=== PATIENT | male | born 1990 | race Caucasian/White ===

== ENCOUNTER 2016-07-13 21:01 | Emergency (ER) | payer OTHER ==
[2016-07-13] MEDS ORDERED: Loratadine 10 MG Tab PO ONE (21:20)
[2016-07-13] MEDS ORDERED: Albuterol 0.083% 2.5 MG/3 ML Neb Soln NEB ONE (21:20)
[2016-07-13] MEDS ORDERED: Sodium Chloride 0.9% 10 ML Syringe FLUSH PRN (21:20)
[2016-07-13] MEDS ORDERED: methylPREDNISolone Sodium Succinate 125 MG/2 ML SDV IVPUSH ONE (21:20)
--- NOTE | 2016-07-13 21:32 | EDM.PDOC ---
ED HPI Allergic Reaction - General Chief Complaint: Allergic Reaction Stated Complaint: SOB Time Seen by Provider: 07/13/16 21:11 Source of Information: Reports: Patient, RN notes reviewed - History of Present Illness INITIAL COMMENTS - FREE TEXT/NARRATIVE: 26-year-old male comes in with shortness of breath, lightheadedness and dizziness that started after taking a dose of Robitussin about one hour ago. He states that he began experiencing some nasal and sinus congestion this late afternoon and also onset of nonproductive coughing. Therefore he took the Robitussin to try help relieve some of those symptoms. He states that his tongue feels "tingly". It does not feel swollen. His mouth or face does not feel swollen. So far his throat feels okay. He has not developed any rash, hives and also denies skin itchiness at this time. He states he has had prior "anaphylactic" reaction to penicillin in the past. He is not currently on antibiotics or any other prescription medicine at this time. He does not smoke. He may have had some mild reactive airway disease when young but states he outgrew that. He works in the [employer] but no unusual chemical exposure that he is aware of - Related Data Allergies/ADRs: Allergies Allergy/AdvReac Type Severity Reaction Status Date / Time amoxicillin Allergy Anaphylactic Verified 07/13/16 21:08 Shock coconut Allergy Airway Verified 07/13/16 21:08 Tightness Penicillins Allergy Anaphylactic Verified 07/13/16 21:08 Shock Tetracyclines Allergy Hives Verified 07/13/16 21:08 Past Medical History HEENT History: Reports: Other (see below) Other HEENT History: deviated septum; broken nsoe 2x Cardiovascular History: Reports: Other (see below) Other Cardiovascular History: palpitations Musculoskeletal History: Reports: Fracture, Other (see below) Other Musculoskeletal History: clavicle; rotator cuffs; vertebrea fracture ( possibly thoracic) Social & Family History - Tobacco Use Smoking Status *Q: Never Smoker - Caffeine Use Caffeine Use: Reports: Coffee - Recreational Drug Use Recreational Drug Use: No ED ROS ALLERGIC REACTION - Review of Systems Review Of Systems: See Below Constitutional: Denies: fever, chills, diaphoresis HEENT: Reports: Sinus problem (he does have nasal and sinus congestion). Denies : Throat pain, Throat swelling Respiratory: Reports: shortness of breath, cough. Denies: wheezing, pleuritic chest pain, sputum Cardiovascular: Reports: Lightheadedness. Denies: Chest pain, Syncope GI/Abdominal: Denies: Abdominal pain, Nausea, Vomiting Musculoskeletal: Denies: neck pain, shoulder pain, arm pain, joint pain Skin: Reports: erythema (his slight erythema of his upper chest). Denies: pruritis, rash ED EXAM GENERAL NO PERIP PULSE - Physical Exam Exam: See Below General Appearance: alert, anxious (mild) Eye Exam: bilateral eye: PERRL Throat/Mouth: Normal inspection, Normal oropharynx Neck: supple, full range of motion Respiratory/Chest: lungs clear, normal breath sounds, respiratory distress ( mild tachypnea noted). No: rhonchi, wheezing Cardiovascular: regular rate, rhythm GI/Abdominal: soft, non tender Extremities: normal inspection. No: pedal edema, leg pain Neurological: alert, oriented, no motor/sensory deficits Skin Exam: Warm, Dry, No rash, Erythema (slight erythema of the upper mid chest) Course - Vital Signs Last Recorded V/S: Last Vital Signs Temp 97.8 F 07/13/16 21:09 Pulse 80 07/13/16 21:09 Resp 22 H 07/13/16 21:09 BP 133/84 07/13/16 21:09 Pulse Ox 98 07/13/16 21:41 - Orders/Labs/Meds Orders: Active Orders 24 hr Category Date Time Status Peripheral IV Care [RC] . DIRECTED Care 07/13/16 21:21 Active RT Aerosol Therapy [RC] ASDIRECTED Care 07/13/16 21:21 Active Sodium Chloride 0.9% [Saline Flush] Med 07/13/16 21:20 Active 10 ml FLUSH ASDIRECTED PRN Peripheral IV Insertion Adult [OM.PC] Stat Oth 07/13/16 21:20 Ordered Medication Orders Sodium Chloride (Saline Flush) 10 ml FLUSH ASDIRECTED PRN PRN Reason: Keep Vein Open Meds: Medications Generic Name Dose Route Start Last Admin Trade Name Freq PRN Reason Stop Dose Admin Sodium Chloride 10 ml 07/13/16 21:20 Saline Flush FLUSH ASDIRECTED PRN Keep Vein Open Discontinued Medications Generic Name Dose Route Start Last Admin Trade Name Freq PRN Reason Stop Dose Admin Albuterol 2.5 mg 07/13/16 21:20 07/13/16 21:39 Proventil Neb Soln NEB 07/13/16 21:21 2.5 mg ONETIME ONE Administration Loratadine 10 mg 07/13/16 21:20 07/13/16 21:30 Claritin PO 07/13/16 21:21 10 mg ONETIME ONE Administration Methylprednisolone Sodium Succinate 125 mg 07/13/16 21:20 07/13/16 21:31 Solu-Medrol IVPUSH 07/13/16 21:21 125 mg ONETIME ONE Administration - Re-Assessments/Exams Free Text/Narrative Re-Assessment/Exam: 07/13/16 22:14. symptoms have resolved after Claritin 10 mg by mouth, and albuterol neb and Solu-Medrol 125 mg IV. He never did develop any true hives or uticaria, sats were 100% on arrival to the ED and continued to run in the upper 90s. He feels up to discharge, that looks very safe at this time. He is breathing and moving air very comfortably at this time, no wheezing. Discharge instructions as documented. Departure - Departure Time of Disposition: 22:18 Disposition: Home, Self-Care 01 Condition: fair Clinical Impression: Viral upper respiratory infection Dyspnea Qualifiers: Dyspnea type: shortness of breath Qualified Code(s): R06.02 - Shortness of breath Forms: ED Department Discharge Additional Instructions: avoid further robitussin, vaporizer or steam as needed, it appears that you are coming down with a viral upper respiratory infection. there is a lot of that going around right now. Symptoms usually run about 3-5 days. Treatment is entirely symptomatic. Drink plenty of water to maintain hydration. Tylenol if needed for discomfort. All clinic as needed, return to ED as needed. - My Orders Last 24 Hours: My Active Orders 07/13/16 21:20 Sodium Chloride 0.9% [Saline Flush] 10 ml FLUSH ASDIRECTED PRN Peripheral IV Insertion Adult [OM.PC] Stat 07/13/16 21:21 Peripheral IV Care [RC] . DIRECTED RT Aerosol Therapy [RC] ASDIRECTED - Assessment/Plan Last 24 Hours: My Active Orders 07/13/16 21:20 Sodium Chloride 0.9% [Saline Flush] 10 ml FLUSH ASDIRECTED PRN Peripheral IV Insertion Adult [OM.PC] Stat 03/13/17 21:21 Peripheral IV Care [RC] . DIRECTED RT Aerosol Therapy [RC] ASDIRECTED
[2016-07-13 23:24] VITALS: BP 123/77
== END 2016-07-13 22:50 | disposition home or self-care (01) ==
LOC: JD.ED 21:01
DX: R06.02 Shortness of breath (principal); J06.9 Acute upper respiratory infection, unspecified; B97.89 Other viral agents as the cause of diseases classified elsewhere; Z88.0 Allergy status to penicillin; Z88.1 Allergy status to other antibiotic agents
CPT/HCPCS: 94664; 96374; 99285; A9270; J2930; 99284